=== PATIENT | female | born 1955 | race Caucasian/White ===

== ENCOUNTER 2017-05-31 11:43 | Inpatient (IN) | payer BC ==
[2017-05-31] MEDS ORDERED: methylPREDNISolone Sodium Succinate 125 MG/2 ML SDV IVPUSH ONE (12:09)
[2017-05-31] MEDS ORDERED: Albuterol/Ipratropium 3.0-0.5 MG/3 ML Neb Soln NEB ONE (12:09)
[2017-05-31] MEDS ORDERED: Sodium Chloride 0.9% 1,000 ML IV SCH (12:15)
[2017-05-31 13:10] LABS: CHLORIDE,CL 98 mmol/L (98-110); SODIUM,NA 134 mmol/L (136-146)
[2017-05-31] MEDS: Iopamidol 755 MG/ML 500 ML Multipack Bottle IVPUSH STA (14:05)
--- NOTE | 2017-05-31 15:35 | EDM.PDOC ---
ED HPI GENERAL MEDICAL PROBLEM - General Chief Complaint: Respiratory Problem Stated Complaint: COUGHING Time Seen by Provider: 05/31/17 15:34 Source of Information: Reports: Patient - History of Present Illness INITIAL COMMENTS - FREE TEXT/NARRATIVE: HISTORY AND PHYSICAL: History of present illness: [Patient presents with cough and shortness breath persistent for 3 months she has been on several antibiotic regimens No fever nausea vomiting chills sweats no chest pain headache dizziness palpitation no bowel or urine symptoms ] Review of systems: As per history of present illness and below otherwise all systems reviewed and negative. Past medical history: As per history of present illness and as reviewed below otherwise noncontributory. Surgical history: As per history of present illness and as reviewed below otherwise noncontributory. Social history: No reported history of drug or alcohol abuse. Family history: As per history of present illness and as reviewed below otherwise noncontributory. Physical exam: HEENT: Atraumatic, normocephalic, pupils reactive, negative for conjunctival pallor or scleral icterus, mucous membranes moist, throat clear, neck supple, nontender, trachea midline. Lungs: Clear to auscultation, breath sounds equal bilaterally, chest nontender. Heart: S1S2, regular, negative for clicks, rubs, or JVD. Abdomen: Soft, nondistended, nontender. Negative for masses or hepatosplenomegaly. Negative for costovertebral tenderness. Pelvis: Stable nontender. Genitourinary: Deferred. Rectal: Deferred. Extremities: Atraumatic, negative for cords or calf pain. Neurovascular unremarkable. Neuro: Awake, alert, oriented. Cranial nerves II through XII unremarkable. Cerebellum unremarkable. Motor and sensory unremarkable throughout. Exam nonfocal. Diagnostics: [Lab as below EKG Chest 1 view CTA chest ] Therapeutics: [Saline 1 25 mL per hour Rocephin 1 g IV ] Impression: Hypoxia [Metastatic lesion left upper lung Bright red blood per rectum Family history of colon cancer UTI ] Definitive disposition and diagnosis as appropriate pending reevaluation and review of above. Left Upper Chest Pain Score (Numeric/FACES): 9 - Related Data Allergies Allergy/AdvReac Type Severity Reaction Status Date / Time vitamin B AdvReac passing Uncoded 05/31/17 12:00 out? Home Meds: Home Meds Losartan Potassium 25 mg PO DAILY 09/27/14 [History] PARoxetine HCl [Paxil] 20 mg PO DAILY 09/27/14 [History] atorvaSTATin Calcium [Atorvastatin Calcium] 40 mg PO DAILY 09/27/14 [History] valACYclovir HCl [valACYclovir] 1 tab PO ASDIRECTED 09/27/14 [History] Calcium Citrate/Vitamin D3 [Citracal + D Maximum Caplet] 1 tab PO TID 06/23/16 [ History] Cholecalciferol (Vitamin D3) [Vitamin D3] 1 cap PO DAILY 06/23/16 [History] Magnesium Oxide [Magnesium] 1 tab PO DAILY 06/23/16 [History] Multivits-Min/Iron/FA/Lutein [Centrum Silver Women Tablet] 1 tab PO DAILY [History] sitaGLIPtin Phos/Metformin HCl [Janumet Xr 50-1,000 mg Tablet] 2 tab PO DAILY [History] Albuterol Sulfate [Proair Hfa] 8.5 gm IH ASDIRECTED PRN 05/31/17 [History] Past Medical History Cardiovascular History: Reports: High Cholesterol, Hypertension Musculoskeletal History: Reports: Osteoporosis Psychiatric History: Reports: Depression Endocrine/Metabolic History: Reports: Diabetes, Type II - Infectious Disease History Infectious Disease History: Reports: Chicken Pox - Past Surgical History GI Surgical History: Reports: Cholecystectomy, Hernia, Abdominal, Hernia Repair/ Other Female Surgical History: Reports: Section, Other (See Below) Social & Family History - Family History Family Medical History: Noncontributory - Tobacco Use Smoking Status *Q: Never Smoker Second Hand Smoke Exposure: Yes - Caffeine Use Caffeine Use: Reports: Coffee - Alcohol Use Days Per Week of Alcohol Use: 0 Number of Drinks Per Day: 0 Total Drinks Per Week: 0 - Recreational Drug Use Recreational Drug Use: No Drug Use in Last 12 Months: No ED ROS GENERAL - Review of Systems Review Of Systems: ROS reveals no pertinent complaints other than HPI. ED EXAM, GENERAL - Physical Exam Exam: See Below Course - Vital Signs Last Recorded V/S: Last Vital Signs Temp 97.9 F 05/31/17 13:27 Pulse 107 H 05/31/17 15:37 Resp 20 05/31/17 15:37 BP 125/65 05/31/17 15:37 Pulse Ox 95 05/31/17 15:37 - Orders/Labs/Meds Orders: Active Orders 24 hr Category Date Time Status EKG 12 Lead [EKG Documentation Completion] [RC] ROUTINE Care 05/31/17 12:47 Active RT Aerosol Therapy [RC] ASDIRECTED Care 05/31/17 12:09 Active CTA Chest W WO Contrast [Ang Chest] [CT] Stat Exams 05/31/17 12:54 Taken Chest 1V Frontal [CR] Stat Exams 05/31/17 12:11 Taken CULTURE URINE [RM] Stat Lab 05/31/17 15:32 Ordered Sodium Chloride 0.9% [Normal Saline] 1,000 ml Med 05/31/17 12:15 Active IV STAT Medication Orders Sodium Chloride (Normal Saline) 1,000 mls @ 125 mls/hr IV STAT ALICJA Last Admin: 05/31/17 12:32 Dose: 125 mls/hr Labs: Laboratory Tests 05/31/17 05/31/17 05/31/17 Range/Units 12:24 12:24 12:24 WBC 10.63 (4.0-11.0) K/uL RBC 3.88 L (4.30-5.90) M/uL Hgb 12.2 (12.0-16.0) g/dL Hct 36.5 (36.0-46.0) % MCV 94.1 (80.0-98.0) fL MCH 31.4 (27.0-32.0) pg MCHC 33.4 (31.0-37.0) g/dL RDW Std Deviation 50.0 (28.0-62.0) fl RDW Coeff of Javier 15 (11.0-15.0) % Plt Count 138 L (150-400) K/uL MPV 10.70 (7.40-12.00) fL Add Manual Diff YES Neutrophils % (Manual) 74 (48.0-80.0) % Band Neutrophils % 8 % Lymphocytes % (Manual) 9 L (16.0-40.0) % Monocytes % (Manual) 9 (0.0-15.0) % Nucleated RBC % 0.0 /100WBC Absolute Seg Neuts 7.9 H (1.4-5.7) Band Neutrophils # 0.9 Lymphocytes # (Manual) 1.0 (0.6-2.4) Monocytes # (Manual) 1.0 H (0.0-0.8) Nucleated RBCs # 0 K/uL INR 1.16 H (0.86-1.11) D-Dimer, Quantitative 2.00 H (0.0-0.52) mg/LFEU Sodium 134 L (136-146) mmol/L Potassium 4.1 (3.5-5.1) mmol/L Chloride 98 (98-110) mmol/L Carbon Dioxide 22 (21-31) mmol/L BUN 10 (6.0-23.0) mg/dL Creatinine 1.1 (0.6-1.5) mg/dL Est Cr Clr Drug Dosing 43.30 mL/min Estimated GFR (MDRD) 50.2 ml/min Glucose 237 H (60-110) mg/dL Calcium 10.4 (8.8-10.8) mg/dL Total Bilirubin 1.1 (0.1-1.5) mg/dL AST 12 (5-40) IU/L ALT 19 (8-54) IU/L Alkaline Phosphatase 83 (40-150) Creatine Kinase 33 (9-236) IU/L CK-MB (CK-2) 0.5 (0-6.6) ng/ml Troponin I < 0.10 (0.0-0.29) NG/ML Total Protein 7.7 (6.0-8.0) g/dL Albumin 3.8 (3.4-4.8) g/dL Globulin 3.9 H (2.0-3.5) g/dL Albumin/Globulin Ratio 1.0 L (1.3-2.8) Urine Color Urine Appearance Urine pH (5.0-8.0) Ur Specific [place] (1.001-1.035) Urine Protein (NEGATIVE) mg/dL Urine Glucose (UA) (NEGATIVE) mg/dL Urine Ketones (NEGATIVE) mg/dL Urine Occult Blood (NEGATIVE) Urine Nitrite (NEGATIVE) Urine Bilirubin (NEGATIVE) Urine Urobilinogen (<2.0) EU/dL Ur Leukocyte Esterase (NEGATIVE) Urine RBC (0-2/HPF) Urine WBC (0-5/HPF) Ur Epithelial Cells (NONE-FEW) Urine Bacteria (NEGATIVE) 05/31/17 Range/Units 13:30 WBC (4.0-11.0) K/uL RBC (4.30-5.90) M/uL Hgb (12.0-16.0) g/dL Hct (36.0-46.0) % MCV (80.0-98.0) fL MCH (27.0-32.0) pg MCHC (31.0-37.0) g/dL RDW Std Deviation (28.0-62.0) fl RDW Coeff of Javier (11.0-15.0) % Plt Count (150-400) K/uL MPV (7.40-12.00) fL Add Manual Diff Neutrophils % (Manual) (48.0-80.0) % Band Neutrophils % % Lymphocytes % (Manual) (16.0-40.0) % Monocytes % (Manual) (0.0-15.0) % Nucleated RBC % /100WBC Absolute Seg Neuts (1.4-5.7) Band Neutrophils # Lymphocytes # (Manual) (0.6-2.4) Monocytes # (Manual) (0.0-0.8) Nucleated RBCs # K/uL INR (0.86-1.11) D-Dimer, Quantitative (0.0-0.52) mg/LFEU Sodium (136-146) mmol/L Potassium (3.5-5.1) mmol/L Chloride (98-110) mmol/L Carbon Dioxide (21-31) mmol/L BUN (6.0-23.0) mg/dL Creatinine (0.6-1.5) mg/dL Est Cr Clr Drug Dosing mL/min Estimated GFR (MDRD) ml/min Glucose (60-110) mg/dL Calcium (8.8-10.8) mg/dL Total Bilirubin (0.1-1.5) mg/dL AST (5-40) IU/L ALT (8-54) IU/L Alkaline Phosphatase (40-150) Creatine Kinase (9-236) IU/L CK-MB (CK-2) (0-6.6) ng/ml Troponin I (0.0-0.29) NG/ML Total Protein (6.0-8.0) g/dL Albumin (3.4-4.8) g/dL Globulin (2.0-3.5) g/dL Albumin/Globulin Ratio (1.3-2.8) Urine Color DARK YELLOW Urine Appearance SLT CLOUDY Urine pH 5.0 (5.0-8.0) Ur Specific [place] 1.015 (1.001-1.035) Urine Protein TRACE (NEGATIVE) mg/dL Urine Glucose (UA) 100 H (NEGATIVE) mg/dL Urine Ketones NEGATIVE (NEGATIVE) mg/dL Urine Occult Blood SMALL H (NEGATIVE) Urine Nitrite NEGATIVE (NEGATIVE) Urine Bilirubin NEGATIVE (NEGATIVE) Urine Urobilinogen 0.2 (<2.0) EU/dL Ur Leukocyte Esterase MODERATE (NEGATIVE) Urine RBC 0-2 (0-2/HPF) Urine WBC 15-18 (0-5/HPF) Ur Epithelial Cells OCCASIONAL (NONE-FEW) Urine Bacteria FEW (NEGATIVE) Meds: Medications Generic Name Dose Route Start Last Admin Trade Name Freq PRN Reason Stop Dose Admin Sodium Chloride 1,000 mls @ 125 mls/hr 05/31/17 12:15 05/31/17 12:32 Normal Saline IV 125 mls/hr STAT ALICJA Administration Discontinued Medications Generic Name Dose Route Start Last Admin Trade Name Freq PRN Reason Stop Dose Admin Albuterol/Ipratropium 3 ml 05/31/17 12:09 05/31/17 12:32 Duoneb 3.0-0.5 Mg/3 Ml NEB 05/31/17 12:10 3 ml ONETIME ONE Administration Iopamidol 50 ml 05/31/17 13:46 05/31/17 14:05 Isovue Multipack-370 (76%) IVPUSH 05/31/17 13:47 50 ml ONETIME STA Administration Methylprednisolone Sodium Succinate 125 mg 05/31/17 12:09 05/31/17 12:30 Solu-Medrol IVPUSH 05/31/17 12:10 125 mg ONETIME ONE Administration Departure - Departure Time of Disposition: 15:40 Disposition: Admitted As Inpatient 64 Condition: Poor Clinical Impression: BRBPR (bright red blood per rectum), Metastatic lung cancer (metastasis from lung to other site), Hypoxia - Discharge Information Referrals: Yesy Gillis DO [Primary Care Provider] - Forms: ED Department Discharge - My Orders Last 24 Hours: My Active Orders 05/31/17 12:09 RT Aerosol Therapy [RC] ASDIRECTED 05/31/17 12:11 Chest 1V Frontal [CR] Stat 05/31/17 12:15 Sodium Chloride 0.9% [Normal Saline] 1,000 ml IV STAT 05/31/17 12:47 EKG 12 Lead [EKG Documentation Completion] [RC] ROUTINE 05/31/17 12:54 CTA Chest W WO Contrast [Ang Chest] [CT] Stat 05/31/17 15:32 CULTURE URINE [RM] Stat - Assessment/Plan Last 24 Hours: My Active Orders 05/31/17 12:09 RT Aerosol Therapy [RC] ASDIRECTED 05/31/17 12:11 Chest 1V Frontal [CR] Stat 05/31/17 12:15 Sodium Chloride 0.9% [Normal Saline] 1,000 ml IV STAT 05/31/17 12:47 EKG 12 Lead [EKG Documentation Completion] [RC] ROUTINE 05/31/17 12:54 CTA Chest W WO Contrast [Ang Chest] [CT] Stat 05/31/17 15:32 CULTURE URINE [RM] Stat
[2017-05-31] MEDS ORDERED: cefTRIAXone 1 GM in Premix Bag 1 BAG IV ONE (15:40)
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
[2017-05-31] MEDS ORDERED: Acetaminophen 325 MG Tab PO PRN (17:45)
[2017-05-31] MEDS ORDERED: Heparin Sodium 5,000 Units/ML Vial SUBCUT SCH (17:45)
[2017-05-31] MEDS ORDERED: Ondansetron 4 MG Tab.DIS PO PRN (17:45)
[2017-05-31] MEDS: Albuterol/Ipratropium 3.0-0.5 MG/3 ML Neb Soln NEB SCH ×2 (19:03→23:40)
[2017-05-31] MEDS: Pantoprazole 80 MG in Sodium Chloride 0.9% 100 ML IV SCH (19:28)
[2017-05-31] MEDS: Sulfamethoxazole/Trimethoprim 800-160 MG Tab PO SCH (20:29)
[2017-05-31] MEDS: Sodium Chloride 0.9% 1,000 ML IV SCH (21:00)
[2017-06-01] MEDS: Sodium Chloride 0.9% 1,000 ML IV SCH ×3 (05:08→21:53)
[2017-06-01] MEDS: Pantoprazole 80 MG in Sodium Chloride 0.9% 100 ML IV SCH ×3 (05:43→17:12)
[2017-06-01] MEDS: Albuterol/Ipratropium 3.0-0.5 MG/3 ML Neb Soln NEB SCH ×3 (07:03→17:06)
[2017-06-01] MEDS: Insulin Aspart 100 Units/ML 3 ML Pen SUBCUT SCH ×4 (08:02→17:06)
[2017-06-01] MEDS ORDERED: Iopamidol 755 MG/ML 500 ML Multipack Bottle IVPUSH STA (08:17)
[2017-06-01] MEDS: Iopamidol 755 MG/ML 500 ML Multipack Bottle IVPUSH STA (08:36)
[2017-06-01] MEDS: atorvaSTATin 40 MG Tab PO SCH (09:07)
[2017-06-01] MEDS: Magnesium Oxide 400 MG Tab PO SCH (09:07)
[2017-06-01] MEDS: Losartan 50 MG Tab PO SCH (09:07)
[2017-06-01] MEDS: Sulfamethoxazole/Trimethoprim 800-160 MG Tab PO SCH ×2 (09:07→20:11)
[2017-06-01] MEDS: PARoxetine 20 MG Tab PO SCH (09:08)
[2017-06-01] MEDS: Polyethylene Glycol 3350 Powder 17 GM Packet PO PRN (09:15)
--- NOTE | 2017-06-01 10:01 | CR ---
EXAM DATE: 05/31/17 PATIENT'S AGE: 61 Patient: YOUNG ZUÑIGA Facility: [place], [place] Site . Site : 1955 Study: XRay Chest [id number]/[id number] 12:58:23 PM Ordering Physician: Tracie Quinonez Final Report: CHEST 1 VIEW AP INDICATION: Pain and shortness of breath. COMPARISON: No comparison. IMPRESSION: Focal area of opacification somewhat peripheral rounded and medial linear opacity in the left upper lobe. This could represent early pneumonia superimposed on atelectasis due to mucous plugging. Peripheral portion is somewhat more rounded and shows some questionable faint anterior areas of lucency. Follow up is suggested to exclude a area of cavitation although this could also be superimposition with overlapping structures on this single view. The right lung is clear with normal heart size and pulmonary vascularity. No pneumothorax. Dictated by Wilbur Tatum MD @ May 31 2017 1:19PM (Electronic Signature) Report Signed by Proxy. JESSICA
--- NOTE | 2017-06-01 10:12 | CT ---
EXAM DATE: 05/31/17 PATIENT'S AGE: 61 Patient: YOUNG ZUÑIGA Facility: [place], [place] Site . Site : 1955 Study: CT Chest Angio [id number] 2:16:14 PM Ordering Physician: Tracie Quinonez Final Report: INDICATION: Elevated D-dimer. TECHNIQUE: CT chest pulmonary PE protocol acquired with IV contrast. COMPARISON: Chest radiograph May 31, 2017. FINDINGS: CARDIOVASCULAR STRUCTURES: Normal vascular enhancement of the pulmonary arteries , no sign of pulmonary embolism. Heart size is normal. No sign of aneurysm or dissection in the thoracic aorta. There is a trace pericardial effusion. - MEDIASTINUM/ROB: No mass or adenopathy. Normal thyroid gland. - LUNGS/PLEURA: Large, irregular left upper lobe soft tissue mass is measures approximately 11 x 7 x 6 cm. This mass extends to and is contiguous with the mediastinum and left hilum. The mass is encasing the left upper lobe pulmonary artery. Numerous small nodular densities are more inferiorly in the left upper lobe. No other nodules or infiltrates. There is a trace left-sided pleural effusion. - CHEST WALL/AXILLA: No mass or adenopathy. - UPPER ABDOMEN: Unremarkable. - BONES: Moderate compression deformity is present in the T7 vertebral body. No suspicious bone lesions. . IMPRESSION: 1. Large left upper lobe soft tissue mass consistent with a malignancy. This mass extends to the mediastinum and left hilum and is encasing the left upper lobe pulmonary artery. 2. Several other smaller nodular densities lower in the left upper lobe may represent satellite metastatic lesions. No other signs of metastasis in the chest or upper abdomen. 3. No sign of pulmonary embolism or other acute abnormality. Dictated by Sidney Llamas MD @ 05/31/2017 3:08:19 PM Dictated by: Sidney Llamas MD @ 05/31/2017 15:08:24 (Electronic Signature) Report Signed by Proxy. JESSICA
--- NOTE | 2017-06-01 12:29 | PCM.PN ---
- General Info Date of Service: 06/01/17 Subjective Update: No overnight events. Patient still complains of sob. Still requiring supplemental O2 Functional Status: Reports: Pain Controlled - Review of Systems General: Reports: Fatigue HEENT: Reports: No Symptoms Pulmonary: Reports: Shortness of Breath Cardiovascular: Reports: No Symptoms Gastrointestinal: Reports: No Symptoms Genitourinary: Reports: No Symptoms Musculoskeletal: Reports: No Symptoms Skin: Reports: No Symptoms Neurological: Reports: Headache Psychiatric: Reports: No Symptoms - Patient Data Vitals - Most Recent: Last Vital Signs Temp 36.3 C 06/01/17 08:00 Pulse 102 H 06/01/17 08:00 Resp 20 06/01/17 08:00 BP 111/64 06/01/17 09:07 Pulse Ox 94 L 06/01/17 08:00 Weight - Most Recent: 84.55 kg I&O - Last 24 Hours: Intake & Output 05/31/17 06/01/17 06/01/17 22:59 06:59 14:59 Intake Total 843 1550 Output Total 1750 Balance 843 -200 Lab Results Last 24 Hours: Laboratory Results - last 24 hr 06/01/17 06/01/17 06/01/17 Range/Units 04:55 04:55 06:12 WBC 8.79 (4.0-11.0) K/uL RBC 3.28 L (4.30-5.90) M/uL Hgb 10.2 L (12.0-16.0) g/dL Hct 31.2 L (36.0-46.0) % MCV 95.1 (80.0-98.0) fL MCH 31.1 (27.0-32.0) pg MCHC 32.7 (31.0-37.0) g/dL RDW Std Deviation 51.2 (28.0-62.0) fl RDW Coeff of Javier 15 (11.0-15.0) % Plt Count 161 (150-400) K/uL MPV 10.80 (7.40-12.00) fL Add Manual Diff YES Neutrophils % (Manual) 86 H (48.0-80.0) % Band Neutrophils % 10 % Lymphocytes % (Manual) 2 L (16.0-40.0) % Monocytes % (Manual) 2 (0.0-15.0) % Nucleated RBC % 0.0 /100WBC Absolute Seg Neuts 7.6 H (1.4-5.7) Band Neutrophils # 0.9 Lymphocytes # (Manual) 0.2 L (0.6-2.4) Monocytes # (Manual) 0.2 (0.0-0.8) Nucleated RBCs # 0 K/uL Sodium 139 (136-146) mmol/L Potassium 4.6 (3.5-5.1) mmol/L Chloride 107 (98-110) mmol/L Carbon Dioxide 22 (21-31) mmol/L BUN 17 (6.0-23.0) mg/dL Creatinine 1.1 (0.6-1.5) mg/dL Est Cr Clr Drug Dosing 43.30 mL/min Estimated GFR (MDRD) 50.2 ml/min Glucose 414 H (60-110) mg/dL POC Glucose 265 H (60-110) mg/dL Calcium 9.9 (8.8-10.8) mg/dL Phosphorus 3.2 (2.4-4.7) mg/dL Magnesium 1.7 (1.5-2.3) mEq/L Med Orders - Current: Current Medications Acetaminophen (Tylenol) 650 mg PO Q4H PRN PRN Reason: Pain (Mild 1-3)/fever Albuterol/Ipratropium (Duoneb 3.0-0.5 Mg/3 Ml) 3 ml NEB Q6HRRT [facility] Last Admin: 06/01/17 11:19 Dose: 3 ml Atorvastatin Calcium (Lipitor) 40 mg PO DAILY [facility] Last Admin: 06/01/17 09:07 Dose: 40 mg Sodium Chloride (Normal Saline) 1,000 mls @ 125 mls/hr IV ASDIRECTED [facility] Last Admin: 06/01/17 05:08 Dose: 125 mls/hr Pantoprazole Sodium 80 mg/ (Sodium Chloride) 100 mls @ 10 mls/hr IV Q10H [facility] Last Admin: 06/01/17 05:43 Dose: 10 mls/hr Insulin Aspart (Novolog) 0 unit SUBCUT TIDAC [facility] PRN Reason: Protocol Last Admin: 06/01/17 12:02 Dose: 4 units Losartan Potassium (Cozaar) 25 mg PO DAILY [facility] Last Admin: 06/01/17 09:07 Dose: 25 mg Magnesium Oxide (Magnesium Oxide) 400 mg PO DAILY [facility] Last Admin: 06/01/17 09:07 Dose: 400 mg Ondansetron HCl (Zofran Odt) 4 mg PO Q4H PRN PRN Reason: nausea, able to take PO Paroxetine HCl (Paxil) 20 mg PO DAILY [facility] Last Admin: 06/01/17 09:08 Dose: 20 mg Polyethylene Glycol (Miralax) 17 gm PO DAILY PRN PRN Reason: Constipation Last Admin: 06/01/17 09:15 Dose: 17 gm Trimethoprim/Sulfamethoxazole (Septra Ds) 1 tab PO BID [facility] Last Admin: 06/01/17 09:07 Dose: 1 tab Discontinued Medications Albuterol/Ipratropium (Duoneb 3.0-0.5 Mg/3 Ml) 3 ml NEB ONETIME ONE Stop: 05/31/17 12:10 Last Admin: 05/31/17 12:32 Dose: 3 ml Heparin Sodium (Porcine) (Heparin Sodium) 5,000 units SUBCUT Q8H [facility] Last Admin: 05/31/17 22:25 Dose: Not Given Sodium Chloride (Normal Saline) 1,000 mls @ 125 mls/hr IV STAT [facility] Last Admin: 05/31/17 12:32 Dose: 125 mls/hr Ceftriaxone Sodium/Dextrose 1 (gm/ Premix) 50 mls @ 100 mls/hr IV ONETIME ONE Stop: 05/31/17 16:09 Last Admin: 05/31/17 15:46 Dose: 100 mls/hr Iopamidol (Isovue Multipack-370 (76%)) 50 ml IVPUSH ONETIME STA Stop: 05/31/17 13:47 Last Admin: 06/01/17 08:36 Dose: 80 ml Iopamidol (Isovue Multipack-370 (76%)) 80 ml IVPUSH ONETIME STA Stop: 06/01/17 08:18 Last Admin: 06/01/17 09:57 Dose: Not Given Methylprednisolone Sodium Succinate (Solu-Medrol) 125 mg IVPUSH ONETIME ONE Stop: 05/31/17 12:10 Last Admin: 05/31/17 12:30 Dose: 125 mg - Exam Quality Assessment: Supplemental Oxygen General: Alert, Oriented Lungs: Normal Respiratory Effort, Decreased Breath Sounds, Crackles GI/Abdominal Exam: Normal Bowel Sounds, Soft, Non-Tender, No Distention Back Exam: Normal Inspection, Full Range of Motion Extremities: Non-Tender, No Pedal Edema, Normal Capillary Refill Peripheral Pulses: 2+: Carotid (L), Carotid (R), Radial (L), Radial (R) Skin: Intact Neurological: No New Focal Deficit - Problem List Review Problem List Initiated/Reviewed/Updated: Yes - Plan Plan:: 61 yo female admitted 05/31/17 for hypoxia found to have new left upper lobe malignancy, UTI, and bright red blood per rectum with pmh of Htn, Hld, DMII. Hypoxia: continue to wean O2. Discharge on home O2 if needed Left upper lobe malignancy: obtain CT of abd/pelvis as well as head secondary to her new headaches. Out-patient f/u with oncology UTI: start Bactrim DS BID BRBPR: Hb stable. out-patient colonoscopy will be needed. Htn: Stable resume home meds. Hld: Stable resume home meds. DMII: ISS low dose. VTE: SCD no pharm secondary to possible GI bleed. Dispo:1-2 days pending
--- NOTE | 2017-06-01 13:18 | PCM.SN ---
- Free Text/Narrative Note: CT of head was unremarkable. CT abd/pelvis: No signs of acute or metastatic disease
--- NOTE | 2017-06-01 14:06 | CT ---
EXAM DATE: 05/31/17 PATIENT'S AGE: 61 Patient: YOUNG ZUÑIGA Facility: [place], [place] Site . Site : 1955 Study: CT Head [id number] 9:00:02 AM Ordering Physician: Zurdo Roberts Final Report: INDICATION: Headache. Lung cancer. TECHNIQUE: CT head without and with IV contrast. COMPARISON: June 23, 2016 FINDINGS: CSF spaces: Within normal limits for age. Brain parenchyma: The nath-white differentiation is normal. No sign of mass, hemorrhage, or midline shift. No sign of abnormal enhancement. The intracranial vasculature appears grossly unremarkable. The previously seen pituitary nodule is no longer present. Skull base and calvarium: The visualized paranasal sinuses and mastoid air cells demonstrate no acute or significant findings. The visualized orbits are grossly unremarkable. No skull fractures. IMPRESSION: Unremarkable head CT without and with IV contrast. No signs of metastatic disease. Please note that all CT scans at this facility use dose modulation, iterative reconstruction, and/or weight-based dosing when appropriate to reduce radiation dose to as low as reasonably achievable. Dictated by Sidney Llamas MD @ Jun 01 2017 9:22AM (Electronic Signature) Report Signed by Proxy. JESSICA
--- NOTE | 2017-06-01 14:07 | CT ---
EXAM DATE: 05/31/17 PATIENT'S AGE: 61 Patient: YOUNG ZUÑIGA Facility: [place], [place] Site Site : 1955 Study: CT Abdomen/Pelvis [id number] 9:08:29 AM Ordering Physician: MARICHUY ALBARRAN MD Final Report: INDICATION: Chest malignancy. TECHNIQUE: CT abdomen and pelvis acquired with IV contrast. COMPARISON: CT chest May 31, 2017. FINDINGS: LOWER CHEST: Bibasilar atelectasis. Trace pericardial effusion is unchanged. LIVER: Unremarkable. Normal in size and attenuation. No masses. GALLBLADDER AND BILE DUCTS: Status post cholecystectomy. PANCREAS: Unremarkable. No mass or inflammation. SPLEEN: Unremarkable. Normal in size. No masses. ADRENAL GLANDS: Unremarkable. No nodules. KIDNEYS: No masses, stones, or hydronephrosis. There is bilateral symmetrical perinephric fat stranding. Nodular area of stranding is emanating from the inferior left kidney posterior, this area measures 1.7 cm and is of doubtful significance. GI TRACT: Unremarkable. Normal in caliber. No sign of mass or inflammation. VASCULATURE: Unremarkable. LYMPH NODES: No lymphadenopathy. OMENTUM/PERITONEUM/ABDOMINAL WALL: Unremarkable. No sign of mass or infiltration. No free air or significant free fluid. PELVIS: Unremarkable. BONES: Unremarkable for age. IMPRESSION: No signs of acute or metastatic disease in the abdomen or pelvis. Please note that all CT scans at this facility use dose modulation, iterative reconstruction, and/or weight-based dosing when appropriate to reduce radiation dose to as low as reasonably achievable. Dictated by Sidney Llamas MD @ Jun 01 2017 9:29AM (Electronic Signature) Report Signed by Proxy. [facility]
[2017-06-01] MEDS ORDERED: Benzonatate 100 MG Cap PO PRN (19:35)
[2017-06-02] MEDS: Albuterol/Ipratropium 3.0-0.5 MG/3 ML Neb Soln NEB SCH ×3 (00:28→11:23)
[2017-06-02] MEDS: Pantoprazole 80 MG in Sodium Chloride 0.9% 100 ML IV SCH ×2 (03:47→10:08)
[2017-06-02] MEDS: Sodium Chloride 0.9% 1,000 ML IV SCH ×2 (04:45→12:15)
[2017-06-02 06:11] LABS: CHLORIDE,CL 110 mmol/L (98-110); SODIUM,NA 141 mmol/L (136-146)
[2017-06-02] MEDS: Insulin Aspart 100 Units/ML 3 ML Pen SUBCUT SCH ×2 (07:22→11:41)
[2017-06-02] MEDS: atorvaSTATin 40 MG Tab PO SCH (08:41)
[2017-06-02] MEDS: Sulfamethoxazole/Trimethoprim 800-160 MG Tab PO SCH (08:41)
[2017-06-02] MEDS: PARoxetine 20 MG Tab PO SCH (08:41)
[2017-06-02] MEDS: Magnesium Oxide 400 MG Tab PO SCH (08:41)
[2017-06-02] MEDS: Polyethylene Glycol 3350 Powder 17 GM Packet PO PRN (08:41)
[2017-06-02] MEDS: Losartan 50 MG Tab PO SCH (08:42)
[2017-06-02 11:50] VITALS: BP 119/62
--- NOTE | 2017-06-02 11:59 | PCM.DCSUM1 ---
Discharge Summary - Hospital Course Free Text/Narrative:: 61 yo fm non-smoker admitted on 05/31/17 for Hypoxia. CTA done in ED revealed Left upper Lobe mass at the mediastynum with local extension. As per radiologist the mass was highly likely to be malignant. Patient had no prior knowledge of the mass. She was informed of the mass. Her hypoxia was treated with oxygen, duonebs and antibiotics. Her hypoxia resolved. CT abdomen, pelvis and head were done to evaluate for mets but no abnormalities were found. Patient was informed of this. She was informed of need of biopsy for treatment. This will be arranged out-patient for her. After resolution of hypoxia there was no further indication for hospitalization therefore she was discharged home on 06/02/17. Due to unavailability of radiology and cancer center inability to schedule appointment without biopsy, the patient will be referred to Pulmonary at [facility]. We attempted to schecule appointment prior to discharge however [facility] request hospitalization notes prior to scheduling but they did inform us that they will contact patient once the notes are received and reviewed. 1. Hypoxia, resolved -likely secondary to LRTI -cough, pleuritis and diminished breath sounds present but improving 2. Left upper lobe malignancy -newly diagnosed, non smoker -no mets on CT head/abdomen/pelvis -refer to Pulmonary at [facility] for biopsy and further management. Send all records from current hospitalization and push all imaging -[facility] will contact patient to schedule appointment once notes reviewed 3. UTI -discharge on Bactrim DS BID for 3 days 4. BRBPR -Hb stable -patient states she has had normal colonoscopy within last 10 years -f/u with PCP to discuss need for early colonoscopy 5. HTN -resume home meds 6. DMT2 -resume home meds - Discharge Data Discharge Date: 06/02/17 Discharge Disposition: Home, Self-Care 01 Condition: Good - Patient Instructions Notify Provider of: Fever, Drainage, Nausea and/or Vomiting - Discharge Plan Prescriptions/Med Rec: Benzonatate [Tessalon Perles] 100 mg PO TID PRN #30 cap PRN Reason: Cough Sulfamethoxazole/Trimethoprim [IJD: Sulfamethoxazole/Trimethoprim DS] 1 tab PO BID 3 Days #6 tablet Home Medications: Home Meds Losartan Potassium 25 mg PO DAILY 09/27/14 [History] PARoxetine HCl [Paxil] 20 mg PO DAILY 09/27/14 [History] atorvaSTATin Calcium [Atorvastatin Calcium] 40 mg PO DAILY 09/27/14 [History] valACYclovir HCl [valACYclovir] 1 tab PO ASDIRECTED 09/27/14 [History] Calcium Citrate/Vitamin D3 [Citracal + D Maximum Caplet] 1 tab PO TID 06/23/16 [ History] Cholecalciferol (Vitamin D3) [Vitamin D3] 1 cap PO DAILY 06/23/16 [History] Magnesium Oxide [Magnesium] 1 tab PO DAILY 06/23/16 [History] Multivits-Min/Iron/FA/Lutein [Centrum Silver Women Tablet] 1 tab PO DAILY [History] sitaGLIPtin Phos/Metformin HCl [Janumet Xr 50-1,000 mg Tablet] 2 tab PO DAILY [History] Albuterol Sulfate [Proair Hfa] 8.5 gm IH ASDIRECTED PRN 05/31/17 [History] Benzonatate [Tessalon Perles] 100 mg PO TID PRN #30 cap 06/02/17 [Rx] Sulfamethoxazole/Trimethoprim [IJD: Sulfamethoxazole/Trimethoprim DS] 1 tab PO BID 3 Days #6 tablet 06/02/17 [Rx] Referrals: Yesy Gillis DO [Primary Care Provider] - 06/15/17 10:45 am - Discharge Summary/Plan Comment DC Time >30 min.: No - General Info Date of Service: 06/02/17 - Review of Systems General: Reports: No Symptoms HEENT: Reports: Headaches Pulmonary: Reports: Pleuritic Chest Pain, Cough Cardiovascular: Reports: No Symptoms Gastrointestinal: Reports: No Symptoms Genitourinary: Reports: No Symptoms Musculoskeletal: Reports: No Symptoms Skin: Reports: No Symptoms Neurological: Reports: No Symptoms Psychiatric: Reports: No Symptoms - Patient Data Vitals - Most Recent: Last Vital Signs Temp 36.4 C 06/02/17 11:49 Pulse 99 06/02/17 11:49 Resp 20 06/02/17 11:49 BP 119/62 06/02/17 11:49 Pulse Ox 92 L 06/02/17 11:49 Weight - Most Recent: 84.55 kg I&O - Last 24 hours: Intake & Output 06/01/17 06/02/17 06/02/17 22:59 06:59 14:59 Intake Total 5679 7562 Output Total 2400 2400 Balance 317 162 Lab Results - Last 24 hrs: Laboratory Results - last 24 hr 06/01/17 06/01/17 06/01/17 Range/Units 08:45 11:32 16:43 WBC (4.0-11.0) K/uL RBC (4.30-5.90) M/uL Hgb (12.0-16.0) g/dL Hct (36.0-46.0) % MCV (80.0-98.0) fL MCH (27.0-32.0) pg MCHC (31.0-37.0) g/dL RDW Std Deviation (28.0-62.0) fl RDW Coeff of Javier (11.0-15.0) % Plt Count (150-400) K/uL MPV (7.40-12.00) fL Neut % (Auto) (48.0-80.0) % Lymph % (Auto) (16.0-40.0) % [place] % (Auto) (0.0-15.0) % Eos % (Auto) (0.0-7.0) % Baso % (Auto) (0.0-1.5) % Neut # (Auto) (1.4-5.7) K/uL Lymph # (Auto) (0.6-2.4) K/uL [place] # (Auto) (0.0-0.8) K/uL Eos # (Auto) (0.0-0.7) K/uL Baso # (Auto) (0.0-0.1) K/uL Nucleated RBC % /100WBC Nucleated RBCs # K/uL Sodium (136-146) mmol/L Potassium (3.5-5.1) mmol/L Chloride (98-110) mmol/L Carbon Dioxide (21-31) mmol/L BUN (6.0-23.0) mg/dL Creatinine (0.6-1.5) mg/dL Est Cr Clr Drug Dosing mL/min Estimated GFR (MDRD) ml/min Glucose (60-110) mg/dL POC Glucose 275 H 343 H 287 H (60-110) mg/dL Calcium (8.8-10.8) mg/dL 06/02/17 06/02/17 Range/Units 05:03 05:03 WBC 5.81 (4.0-11.0) K/uL RBC 3.08 L (4.30-5.90) M/uL Hgb 9.6 L (12.0-16.0) g/dL Hct 29.0 L (36.0-46.0) % MCV 94.2 (80.0-98.0) fL MCH 31.2 (27.0-32.0) pg MCHC 33.1 (31.0-37.0) g/dL RDW Std Deviation 51.3 (28.0-62.0) fl RDW Coeff of Javier 15 (11.0-15.0) % Plt Count 169 (150-400) K/uL MPV 10.20 (7.40-12.00) fL Neut % (Auto) 80.7 H (48.0-80.0) % Lymph % (Auto) 12.6 L (16.0-40.0) % [place] % (Auto) 5.5 (0.0-15.0) % Eos % (Auto) 1.0 (0.0-7.0) % Baso % (Auto) 0.2 (0.0-1.5) % Neut # (Auto) 4.7 (1.4-5.7) K/uL Lymph # (Auto) 0.7 (0.6-2.4) K/uL [place] # (Auto) 0.3 (0.0-0.8) K/uL Eos # (Auto) 0.1 (0.0-0.7) K/uL Baso # (Auto) 0.0 (0.0-0.1) K/uL Nucleated RBC % 0.0 /100WBC Nucleated RBCs # 0 K/uL Sodium 141 (136-146) mmol/L Potassium 3.7 (3.5-5.1) mmol/L Chloride 110 (98-110) mmol/L Carbon Dioxide 20 L (21-31) mmol/L BUN 14 (6.0-23.0) mg/dL Creatinine 0.8 (0.6-1.5) mg/dL Est Cr Clr Drug Dosing 59.54 mL/min Estimated GFR (MDRD) > 60.0 ml/min Glucose 265 H (60-110) mg/dL POC Glucose (60-110) mg/dL Calcium 8.2 L (8.8-10.8) mg/dL IRENE Results - Last 24 hrs: Microbiology 06/01/17 18:50 Stool Occult Blood (IRENE) - Final Stool / Feces - Stool, Formed NEGATIVE OCCULT BLOOD Med Orders - Current: Current Medications Acetaminophen (Tylenol) 650 mg PO Q4H PRN PRN Reason: Pain (Mild 1-3)/fever Albuterol/Ipratropium (Duoneb 3.0-0.5 Mg/3 Ml) 3 ml NEB Q6HRRT [facility] Last Admin: 06/02/17 11:23 Dose: 3 ml Atorvastatin Calcium (Lipitor) 40 mg PO DAILY [facility] Last Admin: 06/02/17 08:41 Dose: 40 mg Benzonatate (Tessalon Perles) 200 mg PO TID PRN PRN Reason: Cough Last Admin: 06/01/17 20:11 Dose: 200 mg Sodium Chloride (Normal Saline) 1,000 mls @ 125 mls/hr IV ASDIRECTED [facility] Last Admin: 06/02/17 04:45 Dose: 125 mls/hr Pantoprazole Sodium 80 mg/ (Sodium Chloride) 100 mls @ 10 mls/hr IV Q10H [facility] Last Admin: 06/02/17 10:08 Dose: Not Given Insulin Aspart (Novolog) 0 unit SUBCUT TIDAC [facility] PRN Reason: Protocol Last Admin: 06/02/17 11:41 Dose: 2 units Losartan Potassium (Cozaar) 25 mg PO DAILY [facility] Last Admin: 06/02/17 08:42 Dose: 25 mg Magnesium Oxide (Magnesium Oxide) 400 mg PO DAILY [facility] Last Admin: 06/02/17 08:41 Dose: 400 mg Ondansetron HCl (Zofran Odt) 4 mg PO Q4H PRN PRN Reason: nausea, able to take PO Paroxetine HCl (Paxil) 20 mg PO DAILY [facility] Last Admin: 06/02/17 08:41 Dose: 20 mg Polyethylene Glycol (Miralax) 17 gm PO DAILY PRN PRN Reason: Constipation Last Admin: 06/02/17 08:41 Dose: 17 gm Trimethoprim/Sulfamethoxazole (Septra Ds) 1 tab PO BID [facility] Last Admin: 06/02/17 08:41 Dose: 1 tab Discontinued Medications Albuterol/Ipratropium (Duoneb 3.0-0.5 Mg/3 Ml) 3 ml NEB ONETIME ONE Stop: 05/31/17 12:10 Last Admin: 05/31/17 12:32 Dose: 3 ml Heparin Sodium (Porcine) (Heparin Sodium) 5,000 units SUBCUT Q8H [facility] Last Admin: 05/31/17 22:25 Dose: Not Given Sodium Chloride (Normal Saline) 1,000 mls @ 125 mls/hr IV STAT [facility] Last Admin: 05/31/17 12:32 Dose: 125 mls/hr Ceftriaxone Sodium/Dextrose 1 (gm/ Premix) 50 mls @ 100 mls/hr IV ONETIME ONE Stop: 05/31/17 16:09 Last Admin: 05/31/17 15:46 Dose: 100 mls/hr Iopamidol (Isovue Multipack-370 (76%)) 50 ml IVPUSH ONETIME STA Stop: 05/31/17 13:47 Last Admin: 06/01/17 08:36 Dose: 80 ml Iopamidol (Isovue Multipack-370 (76%)) 80 ml IVPUSH ONETIME STA Stop: 06/01/17 08:18 Last Admin: 06/01/17 09:57 Dose: Not Given Methylprednisolone Sodium Succinate (Solu-Medrol) 125 mg IVPUSH ONETIME ONE Stop: 05/31/17 12:10 Last Admin: 05/31/17 12:30 Dose: 125 mg - Exam General: Reports: Alert, Oriented, Cooperative, No Acute Distress Neck: Reports: Supple, No JVD Lungs: Reports: Normal Respiratory Effort, Decreased Breath Sounds Cardiovascular: Reports: Regular Rate, Regular Rhythm Back Exam: Reports: Normal Inspection Extremities: Normal Inspection, Normal Capillary Refill Skin: Reports: Warm, Dry, Intact Neurological: Reports: No New Focal Deficit *Q Meaningful Use (DIS) - VTE *Q VTE Criteria *Q: - Stroke *Q Stroke Criteria *Q: - AMI *Q AMI Criteria *Q:
== END 2017-06-02 14:52 | disposition home or self-care (01) | DRG 144 ==
LOC: MW.ED 11:43 → MW.MS 15:57
PROVIDERS: ADMIT Family Medicine; ATTEND Family Medicine
DX: R09.02 Hypoxemia (principal); C34.12 Malignant neoplasm of upper lobe, left bronchus or lung; N39.0 Urinary tract infection, site not specified; K62.5 Hemorrhage of anus and rectum; I10 Essential (primary) hypertension; E11.9 Type 2 diabetes mellitus without complications; E78.5 Hyperlipidemia, unspecified; R51 Headache; Z79.899 Other long term (current) drug therapy
CPT/HCPCS: 36415; 70470; 70470-26; 71010; 71010-26; 71275; 71275-26; 74177; 74177-26; 80048; 80053; 81001; 82272; 82550; 82553; 82962; 83735; 84100; 84484; 85025; 85379; 85610; 87086; 87804; 93005; 94640; 96361; 96365; 96375; 99283; 99285-25; A9270-GY; C9113; J0696; J1815-GY; J2930; J7030; J7040; Q9967

== ENCOUNTER 2017-07-06 09:44 | Day surgery (SDC) | payer BC ==
[~2017-07-06 09:44] MED LIST: Lactated Ringers 1,000 ML IV SCH; Sodium Chloride 0.9% 10 ML Syringe FLUSH PRN; Sodium Chloride 0.9% 2.5 ML Syringe FLUSH PRN
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
[2017-07-06] MEDS ORDERED: Propofol 200 MG/20 ML SDV ONE (12:41)
[2017-07-06] MEDS ORDERED: Lidocaine 2% 5 ML SDV ONE (12:41)
--- NOTE | 2017-07-06 13:23 | PCM.OPNOTE ---
- General Post-Op/Procedure Note Date of Surgery/Procedure: 07/06/17 Operative Procedure(s): Diagnostic colonoscopy Findings: Grade 2 hemorrhoids Pre Op Diagnosis: BRBPR Post-Op Diagnosis: Hemorrhoids Anesthesia Technique: MAC Primary Surgeon: Isi Martinez Condition: Good Free Text/Narrative:: Intake & Output 07/05/17 07/06/17 07/06/17 22:59 06:59 14:59 Intake Total 600 Balance 600
--- NOTE | 2017-07-06 13:49 | PCM.POSTAN ---
POST ANESTHESIA ASSESSMENT - MENTAL STATUS Mental Status: Alert - RESPIRATORY Respiratory Status: Respiratory Rate WNL, Airway Patent, O2 Saturation Stable - CARDIOVASCULAR CV Status: Pulse Rate WNL, Blood Pressure Stable - GASTROINTESTINAL GI Status: No Symptoms - POST OP HYDRATION Hydration Status: Adequate & Stable
[2017-07-06 13:52] VITALS: BP 119/73
--- NOTE | 2017-07-06 13:57 | PCM48HPAN ---
Post Anesthesia Note - EVALUATION WITHIN 48HRS OF ANESTHETIC Vital Signs in Normal Range: Yes Patient Participated in Evaluation: Yes Respiratory Function Stable: Yes Airway Patent: Yes Cardiovascular Function Stable: Yes Hydration Status Stable: Yes Pain Control Satisfactory: Yes Nausea and Vomiting Control Satisfactory: Yes Mental Status Recovered: Yes - COMMENTS/OBSERVATIONS Free Text/Narrative:: discharged at 1341
--- NOTE | 2017-07-06 21:53 | OR ---
SURGEON: ISI MARTINEZ MD DATE OF PROCEDURE: 07/06/2017 PREOPERATIVE DIAGNOSES: 1. Bright red bleeding per rectum. 2. Change in bowel habits. 3. History of a rectal polyp. POSTOPERATIVE DIAGNOSIS: Grade 2 hemorrhoids. PROCEDURE PERFORMED: Diagnostic colonoscopy. ENDOSCOPIST: Isi Martinez MD. ANESTHESIA: MAC. INSTRUMENT USED: Olympus colonoscope. EXTENT OF EXAM: To the cecum. PREPARATION: Good. LIMITATIONS: None. 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 Recently, the patient has noted a change in her bowel habits with bright red bleeding per rectum. The decision was made to perform a diagnostic colonoscopy. The patient and I discussed the procedure as well as expected perioperative course. We discussed the risks including bleeding, infection, or damage to surrounding structures including perforation. The patient verbalized understanding and wishes to proceed. PROCEDURE IN DETAIL: The patient was brought into the endoscopy suite and placed in the left lateral decubitus position. A time-out was completed verifying the patient's name, age, date of , allergies, and procedure to be performed. Monitored anesthesia care was induced and continuous oxygen was provided via nasal cannula throughout the procedure. After adequate sedation was achieved, a digital rectal exam was performed. This exam was within normal limits. A well lubricated colonoscope was inserted into the rectum and advanced under direct visualization to the level of cecum. The cecum was identified by both visual and anatomic landmarks. A photograph was taken of the cecal cap and I was able to intubate the terminal ileum, which appeared normal. The scope was then fully withdrawn while examining the color, texture, anatomy, and integrity of the mucosa from the cecum to the anal canal. The patient was noted to have a normal colonic mucosa. The scope was brought into the rectum and retroflexed to allow visualization of the anal canal opening. The patient was noted to have some enlarged hemorrhoids with stigmata of recent bleeding and a photograph of this was taken. The scope was then straightened out and fully withdrawn. The cecum to anus time was 8 minutes. The patient tolerated the procedure well and was taken to PACU in stable condition. ENDOSCOPIC DIAGNOSIS: Grade 2 hemorrhoids. RECOMMENDATIONS: Follow up in clinic in 2 weeks. SOWMYA CHOI /[id number]
== END 2017-07-06 13:45 | disposition home or self-care (01) ==
LOC: MW.SDS 09:44
PROVIDERS: ATTEND Surgery
DX: K64.1 Second degree hemorrhoids (principal); F32.9 Major depressive disorder, single episode, unspecified; I10 Essential (primary) hypertension; E78.00 Pure hypercholesterolemia, unspecified; M81.0 Age-related osteoporosis without current pathological fracture; K21.9 Gastro-esophageal reflux disease without esophagitis; E11.9 Type 2 diabetes mellitus without complications; Z87.19 Personal history of other diseases of the digestive system; Z79.899 Other long term (current) drug therapy; Z90.710 Acquired absence of both cervix and uterus; Z98.890 Other specified postprocedural states; Z90.89 Acquired absence of other organs
CPT/HCPCS: 45378; 82962; J7120; J2704

== ENCOUNTER 2020-02-14 16:31 | Observation (INO) | payer MEDICARE, OTHER ==
[2020-02-14] MEDS ORDERED: Sodium Chloride 0.9% 10 ML Syringe FLUSH PRN (17:03)
[2020-02-14] MEDS ORDERED: Sodium Chloride 0.9% 2.5 ML Syringe FLUSH PRN (17:03)
[2020-02-14 17:29] LABS: BLOOD UREA NITROGEN,BUN 12 mg/dL (7.0-18.0); CARBON DIOXIDE,CO2 26.7 mmol/L (21.0-32.0); CHLORIDE,CL 106 mmol/L (98-107); GLUCOSE RANDOM 118 mg/dL (74-106); LIPASE 166 U/L (73-393); SODIUM,NA 143 mmol/L (136-145)
--- NOTE | 2020-02-14 18:00 | CR ---
Chest: Portable view of the chest was obtained. Comparison: Prior chest x-ray of 05/31/17. Small linear scar is seen within the left base. Questionable focal density within the right base. Lungs otherwise are clear. Heart size and mediastinum are normal. Bony structures are grossly intact. Impression: 1. Minimal linear scar. 2. Questionable focal density within the right base most likely due to atelectasis if patient has no infectious symptoms to indicate early area of pneumonia. 3. Nothing acute is otherwise appreciated on portable chest x-ray. Diagnostic code #3 This report was dictated in MDT
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
--- NOTE | 2020-02-14 20:23 | CT ---
CT chest Technique: Multiple axial sections through the chest were obtained. Intravenous contrast was utilized. Study has been performed as a pulmonary angiogram protocol. Reconstructed coronal and sagittal images were obtained. Comparison: Previous chest x-ray performed earlier on the same day (5:32 PM). Findings: Pulmonary arteries are well opacified. No filling defects are seen within the pulmonary arteries to indicate pulmonary embolism. Aorta shows no aneurysm. Mediastinum and hilar region show no adenopathy or mass. No pericardial thickening is seen. Visualized upper abdominal structures shows evidence of prior cholecystectomy. Nothing acute is seen within the upper abdomen. Mild areas of increased density are noted within the lingula. Hazy groundglass appearance is scattered within both lungs. Lungs otherwise are clear. Bone window settings were reviewed which shows no acute osseous finding. Impression: 1. No findings of pulmonary embolism. 2. Slight increased density within the lingula most likely due to atelectasis. 3. Hazy groundglass appearance. Please exclude any symptoms of viral pneumonia. Findings could otherwise represent slight hypoventilation secondary to patient body habitus. Diagnostic code #3 This report was dictated in MDT
[2020-02-14] MEDS ORDERED: Iopamidol 755 Mg/ML 100 ML Bottle IVPUSH ONE (20:30)
[2020-02-14] MEDS ORDERED: Aspirin 81 MG Tab.Chew PO ONE (20:39)
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
[2020-02-14] MEDS ORDERED: METFORMIN HCL PO SCH (23:11)
[2020-02-14] MEDS ORDERED: SITAGLIPTIN PHOS PO SCH (23:11)
[2020-02-14] MEDS ORDERED: atorvaSTATin 40 MG Tab PO SCH (23:15)
[2020-02-15] MEDS ORDERED: SITAGLIPTIN PHOS PO ONE (00:15)
[2020-02-15] MEDS ORDERED: ATORVASTATIN 40 MG PO ONE (00:15)
[2020-02-15] MEDS ORDERED: METFORMIN HCL PO ONE (00:15)
[2020-02-15] MEDS ORDERED: Multivitamins with Iron/Calcium/Folic Acid/Minerals Tab PO SCH (09:00)
[2020-02-15] MEDS ORDERED: Non-Formulary Medication 1 Each (Sitagliptin Phos/Metformin Hcl [Janumet Xr 50-1,000 Mg Ta PO SCH (09:00)
[2020-02-15] MEDS ORDERED: LOSARTAN 25 MG PO SCH (09:00)
[2020-02-15] MEDS ORDERED: Fenofibrate Nanocrystallized 145 MG PO SCH (09:00)
[2020-02-15] MEDS ORDERED: METFORMIN HCL PO SCH (09:00)
[2020-02-15] MEDS ORDERED: Cholecalciferol (Vitamin D3) 25 MCG Tab PO SCH (09:00)
[2020-02-15] MEDS ORDERED: Metoprolol Succinate 50 MG Tab.ER PO SCH (09:00)
[2020-02-15] MEDS ORDERED: ATORVASTATIN 40 MG PO SCH (09:00)
[2020-02-15] MEDS ORDERED: PAROXETINE 40 MG PO SCH (09:00)
[2020-02-15] MEDS ORDERED: SITAGLIPTIN PHOS PO SCH (09:00)
[2020-02-15] MEDS ORDERED: Magnesium Oxide 400 MG Tab PO SCH (09:00)
[2020-02-15 11:42] VITALS: BP 114/58; PULSE 75
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
== END 2020-02-15 14:20 | disposition home or self-care (01) ==
LOC: MW.ED 16:31 → MW.MS 21:09
PROVIDERS: ADMIT Internal Medicine; ATTEND Internal Medicine
DX: R07.89 Other chest pain (principal); R53.83 Other fatigue; R06.02 Shortness of breath; E78.00 Pure hypercholesterolemia, unspecified; I10 Essential (primary) hypertension; E11.9 Type 2 diabetes mellitus without complications; E66.9 Obesity, unspecified; Z20.828 Contact with and (suspected) exposure to other viral communicable diseases; Z79.899 Other long term (current) drug therapy; Z68.32 Body mass index [BMI] 32.0-32.9, adult; Z79.84 Long term (current) use of oral hypoglycemic drugs
CPT/HCPCS: 36415; 71045; 71275; 80053; 81003; 82962; 83690; 84484; 85025; 85379; 93005; 99285; A9270; Q9967; U0002; 99284; G0378

== ENCOUNTER 2022-05-30 09:55 | Emergency (ER) | payer MEDICARE, OTHER ==
[2022-05-30] MEDS ORDERED: Sodium Chloride 0.9% 1,000 ML IV ONE (10:16)
[2022-05-30] MEDS ORDERED: Scopolamine 1.5 MG Transdermal Patch TRDERM STA (10:18)
[2022-05-30 11:35] LABS: CORONAVIRUS COVID-19 NAA NEGATIVE (NEGATIVE); INFLUENZA A NAA NEGATIVE (NEGATIVE); INFLUENZA B NAA NEGATIVE (NEGATIVE)
[2022-05-30 11:37] LABS: CARBON DIOXIDE,CO2 27.4 mmol/L (21.0-32.0); POTASSIUM,K 4.2 mmol/L (3.5-5.1)
[2022-05-30 12:57] VITALS: BP 130/59; PULSE 58
== END 2022-05-30 12:56 | disposition home or self-care (01) ==
LOC: MW.ED 09:55
DX: R42 Dizziness and giddiness (principal); M79.672 Pain in left foot; E78.00 Pure hypercholesterolemia, unspecified; I10 Essential (primary) hypertension; E11.9 Type 2 diabetes mellitus without complications; D64.9 Anemia, unspecified; E66.9 Obesity, unspecified; Z68.32 Body mass index [BMI] 32.0-32.9, adult; Z88.8 Allergy status to other drugs, medicaments and biological substances; Z79.899 Other long term (current) drug therapy; Z20.822 Contact with and (suspected) exposure to COVID-19
CPT/HCPCS: 0240U; 36415; 71045; 73620; 80053; 81003; 83880; 84443; 84484; 85025; 85379; 93005; 96360; 99284; A9270; J7030

== ENCOUNTER 2022-07-20 07:54 | Day surgery (SDC) | payer MEDICARE, OTHER ==
[~2022-07-20 07:54] MED LIST changes: +Sodium Chloride 0.9% 20 ML SDV IV PRN
[2022-07-20] MEDS ORDERED: Propofol 200 MG/20 ML SDV ONE (09:04)
[2022-07-20 14:12] VITALS: BP 120/62; PULSE 69
== END 2022-07-20 11:05 | disposition home or self-care (01) ==
LOC: MW.SDS 07:54
PROVIDERS: ATTEND Surgery
DX: Z12.11 Encounter for screening for malignant neoplasm of colon (principal); K63.5 Polyp of colon; I10 Essential (primary) hypertension; F32.A Depression, unspecified; E78.00 Pure hypercholesterolemia, unspecified; M81.0 Age-related osteoporosis without current pathological fracture; E11.9 Type 2 diabetes mellitus without complications; M19.90 Unspecified osteoarthritis, unspecified site; E66.9 Obesity, unspecified; B96.81 Helicobacter pylori [H. pylori] as the cause of diseases classified elsewhere; Z68.33 Body mass index [BMI] 33.0-33.9, adult; Z86.010 Personal history of colon polyps; Z88.8 Allergy status to other drugs, medicaments and biological substances; Z79.899 Other long term (current) drug therapy; Z98.890 Other specified postprocedural states; Z90.710 Acquired absence of both cervix and uterus
CPT/HCPCS: 45380; 82947; J2704; J7120; 00811; 88305

== ENCOUNTER 2023-07-19 12:34 | Emergency (ER) | payer MEDICARE, OTHER ==
[2023-07-19 12:53] VITALS: BP 151/78; PULSE 77
[2023-07-19] MEDS: Diphtheria,Pertussis(Acell),Tetanus Vaccine 0.5 ML Syringe IM ONE (13:52)
== END 2023-07-19 13:56 | disposition home or self-care (01) ==
LOC: MW.ED 12:34
DX: M79.671 Pain in right foot (principal); I10 Essential (primary) hypertension; E78.00 Pure hypercholesterolemia, unspecified; E11.9 Type 2 diabetes mellitus without complications; Z79.899 Other long term (current) drug therapy; Z88.8 Allergy status to other drugs, medicaments and biological substances; Z79.84 Long term (current) use of oral hypoglycemic drugs
CPT/HCPCS: 90471; 90715; 99283; 99283-25